=== PATIENT | female | born 1995 | race Caucasian/White ===

== ENCOUNTER 2016-09-08 19:53 | Emergency (ER) | payer BC ==
[~2016-09-08] VITALS: Ht 172.7 cm; Wt 60.0 kg
[2016-09-08 19:54] VITALS: BP 110/76
== END 2016-09-08 21:05 | disposition home or self-care (01) ==
LOC: ED 20:45
DX: H61.23 Impacted cerumen, bilateral (principal); H66.92 Otitis media, unspecified, left ear
CPT/HCPCS: 99283